=== PATIENT | male | born 1975 | race Hispanic/Latino ===

== ENCOUNTER 2017-09-16 10:48 | Day surgery (SDC) | payer SELFPAY ==
[2017-09-16 11:29] LABS: #Basophils 0.1 thou/uL (0.0-0.2); #Lymphocytes 1.3 thou/uL (1.20-3.40); #Monocytes 0.4 thou/uL (0.11-0.59); #Neutrophils 6.4 thou/uL (1.40-6.50); %Basophils 0.8 % (0.0-1.0); %Eosinophils 0.3 % (0.0-10.0); %Lymphocytes 15.4 % (21.0-51.0); %Monocytes 4.6 % (0.0-10.0); Hemoglobin 17.1 g/dL (14.0-18.0); Mean Corpuscular HGB CONC 34.5 g/dL (32.0-36.0); Mean Corpuscular Hemoglobin 30.3 pg (27.0-31.0); Mean Corpuscular Volume 87.8 fl (80.0-94.0); Mean Platelet Volume 6.8 fL (7.4-10.4); Platelet Count 201 thou/uL (130-400); RBC Distribution Width 11.7 % (11.5-14.5); Red Blood Cell (RBC) Count 5.66 mill/uL (4.70-6.10); White Blood Cell (WBC) Count 8.1 thou/uL (4.8-10.8)
--- NOTE | 2017-09-16 11:35 | RAD ---
PORTABLE CHEST: History: Chest pain. Epigastric pain. FINDINGS: No comparison. There is stranding in the left lower lung suggesting linear atelectasis. No evidence of inflammatory infiltrate or effusion. Heart and mediastinum are unremarkable. IMPRESSION: Evidence of linear atelectasis in the left lower lung. Otherwise, no acute process. POS: [facility]
[2017-09-16 11:53] LABS: ALT (SGPT) 49 U/L (8-55); AST (SGOT) 28 U/L (5-34); Albumin 4.6 g/dL (3.5-5.0); Alkaline Phosphatase 110 U/L (40-150); Anion Gap 12 mmol/L (10-20); BUN (Urea Nitrogen) 12 mg/dL (8.9-20.6); Bilirubin, Total 0.8 mg/dL (0.2-1.2); Calc. Creatinine Clearance 0 mL/min (70-130); Calcium 9.2 mg/dL (7.8-10.44); Carbon Dioxide 23 mmol/L (22-29); Chloride 102 mmol/L (98-107); Estimated GFR-MDRD Greater than 90; Globulin 2.9 g/dL (2.4-3.5); Glucose 138 mg/dL (70-105); Lipase 18 U/L (8-78); Protein, Total 7.5 g/dL (6.0-8.3); Sodium 133 mmol/L (136-145)
[2017-09-16 11:57] LABS: CKMB 1.1 ng/mL (0-6.6); Troponin I Less than 0.010 ng/mL (< 0.028)
[2017-09-16] MEDS ORDERED: Fentanyl 100 MCG/2 ML VIAL ONE ×2 (12:40→18:47)
[2017-09-16] MEDS ORDERED: Ondansetron ODT 4 MG TAB ONE (12:40)
[2017-09-16 13:16] LABS: Bilirubin Small (Negative); Blood, Urine Negative (Negative); Clarity CLEAR (Clear); Glucose, Urine (Dipstick) Negative (Negative); Leukocyte Negative (Negative); Nitrite Negative (Negative); Protein, Urine (Dipstick) Trace mg/dL (Neg-Trace); Specific Gravity, Urine 1.029 (1.002-1.036)
[2017-09-16] MEDS ORDERED: Iopamidol 370 76% 100 ML VIAL ONE (13:21)
--- NOTE | 2017-09-16 14:20 | CT ---
CT ABDOMEN AND PELVIS WITH IV CONTRAST: INDICATIONS: Epigastric abdominal pain. FINDINGS: The gallbladder is moderately distended. No focal hepatic lesion is evident. The pancreas, adrenal glands, and kidneys are normal appearing. The spleen is normal appearing. No free fluid is evident. There is a normal appendix in the right lower quadrant. The bladder, prostate, rectum, and perirec jeremy soft tissues are unremarkable. There are a few scattered diverticula involving the colon. The c olon is largely decompressed. No acute osseous abnormality is evident. IMPRESSION: Moderately distended gallbladder. No additional acute abnormality. Recommend correlation for any symptoms and signs of acute cholecystitis. Recommend right upper quadr ant ultrasound for further evaluation. POS: [facility]
[2017-09-16] MEDS ORDERED: Ondansetron HCl/PF 4 MG/2 ML Vial ONE (15:17)
[2017-09-16] MEDS ORDERED: Esmolol 100 MG/10 ML VIAL ONE (15:17)
[2017-09-16] MEDS ORDERED: diphenhydrAMINE 50 MG/ML VIAL ONE (15:17)
[2017-09-16] MEDS ORDERED: PROPOFOL 200 MG/20 ML VIAL ONE (15:17)
[2017-09-16] MEDS ORDERED: Lidocaine 1% PF 5 ML VIAL ONE (15:17)
[2017-09-16] MEDS ORDERED: Dexamethasone 20 MG/5 ML VIAL ONE (15:17)
[2017-09-16] MEDS ORDERED: Glycopyrrolate 0.2 MG/ML 5 ML SYRINGE ONE (15:17)
[2017-09-16] MEDS ORDERED: Succinylcholine Chloride 20 MG/ML 10 ml SYRINGE FS ONE (15:17)
--- NOTE | 2017-09-16 15:55 | ULT ---
ULTRASOUND ABDOMEN LIMITED: (RIGHT UPPER QUADRANT) DATE: 09/16/17. HISTORY: Right upper quadrant and epigastric pain with nausea in 42-year-old male. FINDINGS: Gallbladder: Distended lumen containing multiple small mobile gallstones in the proximal body, measur ing several millimeters in size each. The neck of the gallbladder is not visualized. Normal wall th ickness. No sonographic Altamirano's sign. Common duct: 4 mm. Liver: Normal. Pancreas: Poorly visualized. Right kidney: Normal. IMPRESSION: Positive for cholelithiasis within a distended gallbladder. JN R POS: [facility]
[2017-09-16] MEDS ORDERED: cefOXitin 2 GM in Sodium Chloride 0.9% 100 ML IVPB SCH (16:30)
[2017-09-16] MEDS ORDERED: Bupivacaine/Epinephrine 0.25% 30 ML VIAL ONE (16:53)
[2017-09-16] MEDS ORDERED: Fentanyl 250 MCG/5 ML VIAL ONE (17:14)
--- NOTE | 2017-09-16 17:14 | HP ---
DATE OF ADMISSION: 09/16/2017 CHIEF COMPLAINT: Upper abdominal pain. HISTORY OF PRESENT ILLNESS: This is a 42-year-old male with a history of pain in his right upper quadrant. He has been to the emergency room 3 times for previous severe pain in right upper qu adrant, described as sharp, radiates around to the right back, associated with nausea, no vomiting. No previous known history of jaundice or pancreatitis. He has had multiple attacks of this in the [facility]. PAST MEDICAL HISTORY: He denies. PAST SURGICAL HISTORY: Denies. MEDICINES TAKEN DAILY: None. ALLERGIES: No known drug allergies. SOCIAL HISTORY: He drinks 4 alcoholic drinks a day. No smoking. No other drugs. He is . REVIEW OF SYSTEMS: Ten system review of systems otherwise negative unless described above. PHYSICAL EXAMINATION: VITAL SIGNS: Blood pressure is 133/93, pulse 69, respirations 12, temperature 97.7. HEENT: Sclerae are anicteric. Oropharynx clear. NECK: No lymphadenopathy. CHEST: Clear. HEART: Regular rate and rhythm. ABDOMEN: Soft, but he is tender in the right upper quadrant with localized guarding without rebound. No abdominal or inguinal hernias or previous incisions. EXTREMITIES: No ischemia or edema to extremities. LABORATORY AND X-RAY FINDINGS: Liver function tests normal. Ultrasound shows gallstones, borderline thickened gallbladder wall, normal common bile duct. ASSESSMENT: Acute cholecystitis. PLAN: Laparoscopic cholecystectomy. Risks, benefits, alternatives discussed. He gives consent. He understands risk of bleeding, infection, scarring, need for further operation, need for open operati on, injury to bile duct, need for postop ERCP. He gives consent. We will do this today.
--- NOTE | 2017-09-17 01:37 | OP ---
DATE OF PROCEDURE: 09/16/2017 PREOPERATIVE DIAGNOSIS: Acute cholecystitis. POSTOPERATIVE DIAGNOSIS: Acute cholecystitis. PROCEDURE PERFORMED: Laparoscopic cholecystectomy. SURGEON: Thomas Pastrana M.D. ANESTHESIA: General. ESTIMATED BLOOD LOSS: 100 mL COMPLICATIONS: None. SPECIMEN: Gallbladder. FINDINGS: Significant severe acute cholecystitis. PROCEDURE IN DETAIL: The patient was taken to the operating room and placed supine on the table. Af ter general anesthetic was obtained, the abdomen was shaved, prepped and draped in a sterile fashion. Curved incision made below the umbilicus. Cautery was used to dissect down to and score the fascia . Abdominal cavity entered bluntly using a Mirna clamp. Holding stitch of PDS placed on each side o f the fascia. Meadows trocar was placed. High flow pneumoperitoneum was obtained. Upper midline 5-m m port and two right upper quadrant 5-mm ports were placed under direct visualization. The gallbladd er was very distended with cholecystitis. It was decompressed using needle. There was hydrops. The re was easily grasped after being decompressed. Dissection in the area of the cystic duct and cystic artery allowed delineation of these structures. The critical view triangle was seen showing only th e cystic duct and cystic artery branching from medial to lateral. There were no other branching stru ctures. Two clips were placed proximally on the cystic duct and one distally, and it was cut using l aparoscopic scissors. Cystic artery was taken in the same way. Cautery was used to dissect the gall bladder and gallbladder fossa. Gallbladder was placed in an Endo catch bag and brought out through t he [place]. There was some bleeding in the liver bed that was controlled using cautery. Right upper quadrant was irrigated using sterile solution until returns were clear. There is no ongoing bleeding , no damage to any intraabdominal structures. All port sites were infiltrated using local anesthetic . All ports were removed under camera visualization. Pneumoperitoneum was let down. PDS was used t o close the fascial defect below the umbilicus. All incisions were irrigated and closed using 4-0 Mo nocryl and Dermabond. The patient was en route to recovery in stable condition. All instrument coun ts, needle counts, lap counts were correct.
--- NOTE | 2017-09-19 16:08 | EKG ---
Test Reason : ABD PAIN Blood Pressure : / mmHG Vent. Rate : 061 BPM Atrial Rate : 061 BPM P-R Int : 126 ms QRS Dur : 086 ms QT Int : 430 ms P-R-T Axes : -11 015 009 degrees QTc Int : 432 ms Normal sinus rhythm Normal ECG Confirmed by RACHEL BEAR ([id number]), rewrite editor CHRIS SANTAMARIA ([id number]) on 09/19/2017 4:07:40 PM Referred By: [facility]MA Confirmed By:RACHEL BEAR
== END 2017-09-16 20:25 | disposition home or self-care (01) ==
LOC: EDBD 10:48 → ERS 10:48 → SDC 16:45
PROVIDERS: ATTEND Surgery
PROC: 0FT44ZZ Resection of Gallbladder, Percutaneous Endoscopic Approach (ICD-10-PCS; principal; 2017-09-16)
DX: K80.12 Calculus of gallbladder with acute and chronic cholecystitis without obstruction (principal); Z88.0 Allergy status to penicillin
CPT/HCPCS: 71045; 74177; 76705; 80053; 81003; 82553; 83690; 84484; 85025; 88304; 93005; 96374; J0694; J1100; J1200; J2001; J2405; J2704; J3010; J7050; Q0162